=== PATIENT | male | born 1980 | race Caucasian/White ===

== ENCOUNTER 2017-04-29 09:28 | Emergency (ER) | payer MEDICARE, OTHER ==
[~2017-04-29] VITALS: Ht 182.9 cm; Wt 110.5 kg
[2017-04-29 09:56] LABS: BASOPHILS # (AUTO) 0.1 X10'3 (0-0.2); BASOPHILS % (AUTO) 0.8 % (0-1); EOSINOPHILS # (AUTO) 0.3 X10'3 (0-0.9); EOSINOPHILS % (AUTO) 3.8 % (0-6); HEMATOCRIT 41.4 % (42.0-52.0); HEMOGLOBIN 14.2 g/dl (14.0-17.9); LYMPHOCYTES # (AUTO) 1.5 X10'3 (1.1-4.8); LYMPHOCYTES % (AUTO) 22.7 % (21-51); MEAN CORPUSCULAR HEMOGLOBIN 28.9 PG (27.0-31.0); MEAN CORPUSCULAR HGB CONC 34.2 % (33.0-36.5); MEAN CORPUSCULAR VOLUME 84.4 FL (78-98); MEAN PLATELET VOLUME 11.1 FL (7.4-10.4); MONOCYTES # (AUTO) 0.7 X10'3 (0-0.9); MONOCYTES % (AUTO) 10.2 % (2-12); NEUTROPHILS # (AUTO) 4.2 X10'3 (1.8-7.7); NEUTROPHILS % (AUTO) 62.5 % (42-75); PLATELET COUNT 156 X10'3 (140-440); RED BLOOD COUNT 4.91 X10'6 (4.70-6.10); RED CELL DISTRIBUTION WIDTH 15.6 % (11.5-14.5); WHITE BLOOD COUNT 6.6 X10'3 (4.5-11.0)
[2017-04-29 10:05] LABS: INR 2.2 INR; PARTIAL THROMBOPLASTIN TIME 39 SECONDS (22-32); PROTHROMBIN TIME 22.3 SECONDS (9.0-12.0)
[2017-04-29 10:16] LABS: LARGE PLATELETS FEW; PLATELET ESTIMATE NORMAL
[2017-04-29] MEDS ORDERED: normal saline 1000ml 1,000 ML IV ONE (10:20)
[2017-04-29 10:22] LABS: ALANINE AMINOTRANSFERASE 42 U/L (12-78); ALBUMIN 3.9 G/DL (3.4-5.0); ALKALINE PHOSPHATASE 72 IU/L (46-116); ANION GAP 8 (8-16); ASPARTATE AMINO TRANSFERASE 36 U/L (10-37); BILIRUBIN,TOTAL 0.7 MG/DL (0.1-1.0); BLOOD UREA NITROGEN 17 MG/DL (7-18); BUN/CREATININE RATIO 16.2 (5.4-32.0); CALCIUM 9.2 MG/DL (8.5-10.1); CHLORIDE 104 MMOL/L (99-107); CREATININE 1.05 MG/DL (0.60-1.10); GLUCOSE 93 MG/DL (70-104); MAGNESIUM 1.8 MG/DL (1.5-2.4); POTASSIUM 4.2 MMOL/L (3.5-5.1); SODIUM 140 MMOL/L (135-145); TOTAL CARBON DIOXIDE 27.8 MMOL/L (24-32); eGFR 80 ML/MIN
[2017-04-29 15:40] VITALS: BP 126/83
== END 2017-04-29 15:45 | disposition short-term general hospital (02) ==
LOC: ER 09:28
DX: I47.2 Ventricular tachycardia (principal); I25.5 Ischemic cardiomyopathy; I50.9 Heart failure, unspecified; I25.10 Atherosclerotic heart disease of native coronary artery without angina pectoris; I25.2 Old myocardial infarction; Z95.0 Presence of cardiac pacemaker
CPT/HCPCS: 36415; 71045; 80053; 83735; 83880; 84484; 85025; 85610; 85730; 93005; 96360; 96361; 99291; 99292; J7030

== ENCOUNTER 2019-11-17 12:12 | Emergency (ER) | payer MEDICARE, MEDICAID ==
[~2019-11-17] VITALS: Ht 185.4 cm; Wt 131.0 kg
[~2019-11-17 12:12] MED LIST: ASPI81TA52 PO; CHOL10002 PO; FAMO40TA7 PO; HYDR-4070 PO; HYDR200T84 PO; IRBE150T51 PO; MAGN400C PO; METH10TA6 PO; MULT-620 PO; MYCO500T PO; OSC500T PO; PRAV40TA3 PO; PRED1TAB PO; PROP10TA10 PO; SULF1TAB49 PO; TACR1CAP PO; amiodipine PO
[2019-11-17 12:37] LABS: BASOPHILS % (AUTO) 0.4 % (0-1); EOSINOPHILS # (AUTO) 0.1 X10'3 (0-0.9); EOSINOPHILS % (AUTO) 1.7 % (0-6); HEMATOCRIT 43.3 % (42.0-52.0); HEMOGLOBIN 14.2 g/dl (14.0-17.9); LYMPHOCYTES # (AUTO) 1.2 X10'3 (1.1-4.8); LYMPHOCYTES % (AUTO) 18.6 % (21-51); MEAN CORPUSCULAR HEMOGLOBIN 28.6 PG (27.0-31.0); MEAN CORPUSCULAR HGB CONC 32.8 g/dL (33.0-36.5); MEAN CORPUSCULAR VOLUME 87.1 FL (78-98); MEAN PLATELET VOLUME 10.1 FL (7.4-10.4); MONOCYTES # (AUTO) 0.6 X10'3 (0-0.9); MONOCYTES % (AUTO) 9.7 % (2-12); NEUTROPHILS # (AUTO) 4.3 X10'3 (1.8-7.7); NEUTROPHILS % (AUTO) 69.6 % (42-75); PLATELET COUNT 168 X10'3 (140-440); RED BLOOD COUNT 4.97 X10'6 (4.70-6.10); WHITE BLOOD COUNT 6.2 X10'3 (4.5-11.0)
[2019-11-17 12:50] LABS: PARTIAL THROMBOPLASTIN TIME 26 SECONDS (22-32)
[2019-11-17 12:53] LABS: ALANINE AMINOTRANSFERASE 38 U/L (12-78); ALBUMIN 4.2 G/DL (3.4-5.0); ALBUMIN/GLOBULIN RATIO 1.2 (1.1-1.5); ALKALINE PHOSPHATASE 52 IU/L (46-116); ANION GAP 8 (8-16); ASPARTATE AMINO TRANSFERASE 33 U/L (10-37); BILIRUBIN,TOTAL 0.6 MG/DL (0.1-1.0); BLOOD UREA NITROGEN 20 MG/DL (7-18); BUN/CREATININE RATIO 16.4 (5.4-32.0); CALCIUM 9.2 MG/DL (8.5-10.1); CHLORIDE 106 MMOL/L (99-107); CREATININE 1.22 MG/DL (0.60-1.10); GLUCOSE 100 MG/DL (70-104); POTASSIUM 4.4 MMOL/L (3.5-5.1); SODIUM 140 MMOL/L (135-145); TOTAL CARBON DIOXIDE 26.4 MMOL/L (24-32); TOTAL PROTEIN 7.7 G/DL (6.4-8.2); eGFR 66 ML/MIN
[2019-11-17 12:59] LABS: MAGNESIUM 1.7 MG/DL (1.5-2.4)
[2019-11-17 14:42] VITALS: BP 108/66
== END 2019-11-17 14:44 | disposition home or self-care (01) ==
LOC: ER 12:12
DX: I49.1 Atrial premature depolarization (principal); I25.10 Atherosclerotic heart disease of native coronary artery without angina pectoris; I50.9 Heart failure, unspecified; I25.2 Old myocardial infarction; Z95.0 Presence of cardiac pacemaker; Z90.49 Acquired absence of other specified parts of digestive tract; Z98.890 Other specified postprocedural states; Z72.89 Other problems related to lifestyle; Z88.8 Allergy status to other drugs, medicaments and biological substances; Z79.82 Long term (current) use of aspirin; Z79.899 Other long term (current) drug therapy
CPT/HCPCS: 36415; 71045; 80053; 83735; 83880; 84484; 85025; 85610; 85730; 93005; 99285

== ENCOUNTER 2022-02-17 16:27 | Emergency (ER) | payer MEDICARE, MEDICAID ==
[~2022-02-17] VITALS: Ht 182.9 cm; Wt 129.6 kg
[~2022-02-17 16:27] MED LIST changes: +METH-375 PO; -METH10TA6 PO
[2022-02-17 16:47] LABS: BASOPHILS % (AUTO) 0.2 % (0-1); EOSINOPHILS # (AUTO) 0.1 X10'3 (0-0.9); EOSINOPHILS % (AUTO) 1.1 % (0-6); HEMOGLOBIN 15.9 g/dl (14.0-17.9); LYMPHOCYTES # (AUTO) 2.5 X10'3 (1.1-4.8); LYMPHOCYTES % (AUTO) 30.1 % (21-51); MEAN CORPUSCULAR HEMOGLOBIN 28.8 PG (27.0-31.0); MEAN CORPUSCULAR HGB CONC 33.2 g/dL (33.0-36.5); MEAN PLATELET VOLUME 10.2 FL (7.4-10.4); MONOCYTES # (AUTO) 0.7 X10'3 (0-0.9); MONOCYTES % (AUTO) 8.4 % (2-12); NEUTROPHILS % (AUTO) 60.2 % (42-75); PLATELET COUNT 165 X10'3 (140-440); RED BLOOD COUNT 5.52 X10'6 (4.70-6.10); RED CELL DISTRIBUTION WIDTH 13.5 % (11.5-14.5); WHITE BLOOD COUNT 8.2 X10'3 (4.5-11.0)
[2022-02-17 16:59] LABS: ALANINE AMINOTRANSFERASE 37 U/L (12-78); ALBUMIN 4.5 G/DL (3.4-5.0); ALBUMIN/GLOBULIN RATIO 1.3 (1.1-1.5); ALKALINE PHOSPHATASE 56 IU/L (46-116); ANION GAP 11 (8-16); ASPARTATE AMINO TRANSFERASE 25 U/L (10-37); BILIRUBIN,TOTAL 0.6 MG/DL (0.1-1.0); BLOOD UREA NITROGEN 16 MG/DL (7-18); BUN/CREATININE RATIO 13.1 (5.4-32.0); CALCIUM 10.2 MG/DL (8.5-10.1); CHLORIDE 104 MMOL/L (99-107); CREATININE 1.22 MG/DL (0.60-1.10); GLUCOSE 100 MG/DL (70-104); SODIUM 142 MMOL/L (135-145); TOTAL CARBON DIOXIDE 26.6 MMOL/L (24-32); eGFR 66 ML/MIN
[2022-02-17 17:06] LABS: MAGNESIUM 1.7 MG/DL (1.5-2.4)
--- NOTE | 2022-02-17 19:46 | NUR ---
RECTAL TEMPERATURE DONE AT BEDSIDE, CHAPERONED BY AVELINO MASSEY
[2022-02-17 20:13] LABS: D-DIMER 0.36 MG/L FEU (0-0.50)
[2022-02-17 22:25] VITALS: BP 130/90
== END 2022-02-17 22:27 | disposition home or self-care (01) ==
LOC: ER 16:28
DX: R07.89 Other chest pain (principal); Z20.822 Contact with and (suspected) exposure to COVID-19; I25.10 Atherosclerotic heart disease of native coronary artery without angina pectoris; I50.9 Heart failure, unspecified; I25.2 Old myocardial infarction; Z94.1 Heart transplant status; Z95.0 Presence of cardiac pacemaker; Z98.890 Other specified postprocedural states; Z72.89 Other problems related to lifestyle; Z88.1 Allergy status to other antibiotic agents; Z79.82 Long term (current) use of aspirin; Z79.899 Other long term (current) drug therapy
CPT/HCPCS: 36415; 71045; 80053; 80197; 83735; 83880; 84484; 85025; 85379; 87502; 87503; 87635; 93005; 99285; C9803

== ENCOUNTER 2023-09-12 09:13 | Emergency (ER) | payer MEDICARE, MEDICAID ==
[~2023-09-12] VITALS: Ht 182.9 cm; Wt 133.3 kg
[~2023-09-12 09:13] MED LIST changes: -HYDR-4070 PO; +HYDR200T73 PO; -HYDR200T84 PO; +HYDR50TA46 PO
[2023-09-12 09:41] LABS: BILIRUBIN,URINE NEGATIVE (Neg); CLARITY,URINE CLEAR (Clear); COLOR,URINE YELLOW (Yellow); GLUCOSE, URINE NEGATIVE (Neg); KETONES,URINE NEGATIVE (Neg); LEUKOCYTE ESTERASE ,URINE NEGATIVE (Neg); NITRITES, URINE NEGATIVE (Neg); OCCULT BLOOD,URINE NEGATIVE (Neg); PH,URINE 5.5 (4.8-8.0); PROTEIN,URINE NEGATIVE (Neg); UROBILINOGEN,URINE 0.2 E.U/dL (0.2-1.0)
[2023-09-12 09:54] LABS: UA COLLECTION TYPE CLN CATCH MIDSTREAM
[2023-09-12 10:32] LABS: BASOPHILS % (AUTO) 0.4 % (0-1); EOSINOPHILS # (AUTO) 0.1 X10'3 (0-0.9); EOSINOPHILS % (AUTO) 1.7 % (0-6); HEMATOCRIT 45.9 % (42.0-52.0); LYMPHOCYTES # (AUTO) 1.7 X10'3 (1.1-4.8); LYMPHOCYTES % (AUTO) 25.2 % (21-51); MEAN CORPUSCULAR HEMOGLOBIN 28.3 PG (27.0-31.0); MEAN CORPUSCULAR HGB CONC 32.7 g/dL (33.0-36.5); MEAN CORPUSCULAR VOLUME 86.7 FL (78-98); MONOCYTES # (AUTO) 0.6 X10'3 (0-0.9); MONOCYTES % (AUTO) 8.7 % (2-12); NEUTROPHILS # (AUTO) 4.3 X10'3 (1.8-7.7); PLATELET COUNT 168 X10'3 (140-440); RED BLOOD COUNT 5.29 X10'6 (4.70-6.10); RED CELL DISTRIBUTION WIDTH 13.5 % (11.5-14.5); WHITE BLOOD COUNT 6.7 X10'3 (4.5-11.0)
[2023-09-12 10:58] LABS: ALANINE AMINOTRANSFERASE 41 U/L (12-78); ALBUMIN 4.2 G/DL (3.4-5.0); ALBUMIN/GLOBULIN RATIO 1.1 (1.1-1.5); ALKALINE PHOSPHATASE 51 IU/L (46-116); ANION GAP 10 (8-16); ASPARTATE AMINO TRANSFERASE 23 U/L (10-37); BILIRUBIN,TOTAL 0.7 MG/DL (0.1-1.0); BLOOD UREA NITROGEN 18 MG/DL (7-18); BUN/CREATININE RATIO 14.5 (10.0-20.0); CALCIUM 9.4 MG/DL (8.5-10.1); CHLORIDE 105 MMOL/L (99-107); CREATININE 1.24 MG/DL (0.60-1.10); GLUCOSE 100 MG/DL (70-104); LIPASE 40 U/L (16-77); POTASSIUM 4.4 MMOL/L (3.5-5.1); SODIUM 141 MMOL/L (135-145); TOTAL CARBON DIOXIDE 25.8 MMOL/L (24-32); eCRCL 85 ML/MIN; eGFR 64 ML/MIN
[2023-09-12 11:26] VITALS: BP 118/78; PULSE 83; RESP 14; TEMP 98.2; O2SAT 96
== END 2023-09-12 11:28 | disposition home or self-care (01) ==
LOC: ER 09:13
DX: R10.84 Generalized abdominal pain (principal); I25.10 Atherosclerotic heart disease of native coronary artery without angina pectoris; I50.9 Heart failure, unspecified; I25.2 Old myocardial infarction; Z88.1 Allergy status to other antibiotic agents; Z79.82 Long term (current) use of aspirin; Z79.899 Other long term (current) drug therapy; Z79.52 Long term (current) use of systemic steroids; Z95.0 Presence of cardiac pacemaker; Z98.890 Other specified postprocedural states; Z72.89 Other problems related to lifestyle
CPT/HCPCS: 36415; 74176; 80053; 81003; 83690; 85025; 99284

== ENCOUNTER 2024-08-10 11:42 | Emergency (ER) | payer MEDICARE, MEDICAID ==
[~2024-08-10] VITALS: Ht 182.9 cm; Wt 134.1 kg
[2024-08-10 11:52] VITALS: BP 133/91; PULSE 101; RESP 18; TEMP 98.1; O2SAT 96
--- NOTE | 2024-08-10 12:27 | RADIOLOGY REPORT ---
CLINICAL INDICATION: RIGHT ANKLE PAIN TECHNIQUE: Right DI ANKLE, COMPLETE(3VW MIN) Comparison: None FINDINGS/IMPRESSION: : There is no evidence of acute fracture or dislocation. Soft tissues are unremarkable.
--- NOTE | 2024-08-10 15:02 | Physician Documentation ---
History of Present Illness ~ Chief Complaint: Ankle pain Stated Complaint: R ANKLE PAIN Time Seen by MD: 12:59 Primary Medical Doctor: TALIA RESENDEZ ([employer]) FAX NUMBER [phone] HPI Patient is seen today with complaints of pain in his right foot/ankle. Patient states he rolled it on Thursday about four days ago. Patient states the pain has improved quite a bit but it is still little swollen any still having pain when bearing weight. Patient was concerned for fracture which is why he presented to the ED today for x-ray. Patient has no other concern or complaint at this time. Tetanus witin 5 years: No Medication Reconciliation Allergies: Coded Allergies: vancomycin (Verified Allergy, Unknown, 02/17/22) Scheduled Aspirin (Aspirin EC), 1 TABLET PO DAILY, (Reported) Calcium Carbonate* (Oscal*), 1 TAB PO BID, (Reported) Cholecalciferol (Vitamin D3) (Vitamin D3), 2 TAB PO BID, (Reported) Famotidine (Famotidine), 1 TAB PO DAILY, (Reported) Hydralazine HCl (Hydralazine HCl), 1 TAB PO Q8H, (Reported) Hydroxychloroquine Sulfate* (Plaquenil*), 200 MG PO DAILY, (Reported) Irbesartan* (Avapro*), 1 TAB PO DAILY, (Reported) Magnesium Oxide (Magnesium), 1 CAP PO Q12H, (Reported) Methimazole (Methimazole), 15 MG PO BID, (Reported) Multivitamins (Multivitamins), 1 TAB PO DAILY, (Reported) Mycophenolate Mofetil (Cellcept), 2 TAB PO Q12H, (Reported) Pravastatin Sodium (Pravastatin Sodium), 1 TAB PO HS, (Reported) Prednisone* (Prednisone*), 4 TAB PO DAILY, (Reported) Propranolol Hcl* (Inderal*), 2 TAB PO QID, (Reported) Sulfamethoxazole/Trimethoprim (Bactrim Ds Tablet), 1 TAB PO DAILY, (Reported) Tacrolimus Anhydrous (Prograf), 5 CAP PO Q12H, (Reported) [amiodipine], 10 MG PO DAILY, (Reported) Past Medical History Past Medical History: *CARDIOVASCULAR*, Coronary Artery Disease, Congestive Heart Failure, Myocardial Infarction, *GI/HEPATOBILIARY* Past Surgical History: colectomy, pacemaker, other Other Past Surgical History: LVAD Alcohol Use: Occasionally Drug Use: none Lives with: Family Lives In: Home Occupation: employed Review of Systems Constitutional: Denies: chills, fever, weakness Eyes: Denies: pain, blurred vision ENT: Denies: ear pain, nose pain, throat pain, mouth pain Respiratory: Denies: cough, shortness of breath Cardiovascular: Denies: chest pain, palpitations Gastrointestinal: Denies: abdominal pain, nausea, vomiting Genitourinary: Denies: burning, dysuria Male Genitalia: Denies: penile discharge, testicular pain Neurological: Denies: headache, dizziness Musculoskeletal: Denies: pain, swelling Integumentary: Denies: rash, lesions Allergic/Immunologic: Denies: hives, itching Hematologic/Lymphatic: Denies: no symptoms reported Psychiatric: Denies: depression, anxiety Physical Exam Vital Signs: Temperature: 98.1, Source: Temporal, Heart Rate: 101, Respiratory Rate: 18, BP: 133/91, Pulse Oximetry: 96, Weight: 134.090 Oxygen Flow Rate: 0 Physical Exam General: Awake and Alert, no acute distress. HEENT: Conjunctiva pink, Sclera clear, Mucus Membranes moist. Neck: Supple without masses and tenderness. Resp: Unlabored. Lungs clear to auscultation bilaterally. Heart: Regular Rate and rhythm, normal S1 and S2 without murmur, rub or gallop. Musculoskeletal: Patient on exam does have ecchymosis and swelling of the right foot distal to the lateral malleoli. Patient has no significant tenderness to palpation of any bony prominences or of the 5th metatarsal head proximally or distally. Patient does have tenderness to palpation in the area of the anterior talofibular ligament with some swelling noted in that area. Patient is neurovascularly intact distally. Motor function intact distally. Extremities: No cyanosis,clubbing or edema. Skin: Warm and Dry. Progress Results/Orders Results/Orders Vital Signs 08/10/24 11:52 Temp 98.1 Pulse 101 Resp 18 B/P (MAP) 133/91 Pulse Ox 96 O2 Flow Rate 0 EKG/XRAY/CT/US/VASC/MRI Bone/Soft Tissue X-Ray (Ext.) : Additional Comment X-ray of right ankle interpreted by myself today shows no sign of acute fracture, bones in anatomic alignment, no osteolytic or blastic lesions. DIAGNOSTIC RADIOLOGY Patient: YOAV PRAKASH Medical Record: [id number] [facility] : 1980, Age: 44 Sex: Male Location: ER Patient Status: [facility] ER Service Date/Time: 08/10/24/ 1154 Ordering Physician: YANICK CASTANEDA MD Exam: ANKLE, COMPLETE(3VW MIN) CLINICAL INDICATION: RIGHT ANKLE PAIN TECHNIQUE: Right DI ANKLE, COMPLETE(3VW MIN) Comparison: None FINDINGS/IMPRESSION: : There is no evidence of acute fracture or dislocation. Soft tissues are unremarkable. Electronically Signed by:PREM CRESPO MD Date & Time: 08/10/241224 Dictated by: PREM CRESPO MD Dictation date and time: 08/10/241224 Primary Care Provider: NO PRIMARY CARE PROVIDER cc: YANICK CASTANEDA MD ~ Medical Decision Making Findings Patient is seen today with complaints of pain in his right foot/ankle. Patient states he rolled it on Thursday about four days ago. Patient states the pain has improved quite a bit but it is still little swollen any still having pain when bearing weight. Patient was concerned for fracture which is why he presented to the ED today for x-ray. Patient has no other concern or complaint at this time. X-ray taken of right ankle showed no sign of acute fracture, patient and I use shared decision-making today. Patient will advance activity level as tolerated. Patient will return for repeat x-ray in 7-10 days if no better as needed sooner. Patient will continue Tylenol and ibuprofen as needed for symptomatic pain relief. Patient may continue using crutches over the next 5-7 days but should follow up with primary care and get referral to store receiving specialist in seven days if no better as needed sooner. Departure Disposition: HOME / SELF CARE / HOMELESS Impression: Primary Impression: Sprain of ankle Qualified Codes: S93.491A - Sprain of other ligament of right ankle, initial encounter Condition: Stable Discharge Instructions: Ankle Sprain Referrals: NO PRIMARY CARE PROVIDER (PCP) Signature Scribe Signature: No scribe Attestation: No scribe TONNY AZAR August 10, 2024 15:02
== END 2024-08-10 15:07 | disposition home or self-care (01) ==
LOC: ER 11:43
DX: S93.491A Sprain of other ligament of right ankle, initial encounter (principal); I25.10 Atherosclerotic heart disease of native coronary artery without angina pectoris; I50.9 Heart failure, unspecified; Z88.1 Allergy status to other antibiotic agents; Z90.49 Acquired absence of other specified parts of digestive tract; Z95.0 Presence of cardiac pacemaker; Z79.82 Long term (current) use of aspirin; X58.XXXA Exposure to other specified factors, initial encounter; Y93.89 Activity, other specified; Y92.89 Other specified places as the place of occurrence of the external cause; Y99.8 Other external cause status
CPT/HCPCS: 73610; 99283; L4360